=== PATIENT | female | born 2000 | race African-American/Black ===

== ENCOUNTER 2022-10-09 11:41 | Emergency (ER) | payer MEDICAID, OTHER ==
[~2022-10-09] VITALS: Ht 154.9 cm; Wt 76.5 kg
[2022-10-09 12:38] LABS: Urine Bacteria NONE SEEN /hpf (None Seen); Urine Blood Negative /uL (Negative); Urine Mucus FEW (None Seen); Urine Specific Gravity 1.031 (1.001-1.035); Urine WBC 9 /hpf (0 - 5)
[2022-10-09] MEDS ORDERED: CEPH-322 PO (13:45)
[2022-10-09 13:50] VITALS: BP 117/65
== END 2022-10-09 13:55 | disposition home or self-care (01) ==
LOC: ER 11:41
DX: N39.0 Urinary tract infection, site not specified (principal); Z32.02 Encounter for pregnancy test, result negative
CPT/HCPCS: 81001; 81025

== ENCOUNTER 2024-10-13 20:26 | Emergency (ER) | payer OTHER ==
[~2024-10-13] VITALS: Ht 152.4 cm; Wt 80.2 kg
[~2024-10-13 20:26] MED LIST: CEPH250C PO
--- NOTE | 2024-10-13 20:43 | ED.PDOC ---
History of Present Illness HPI Comments left eye swelling Comments 3 days of itch and swelling under left eye. pt denies using any new makeup, skin products, medications, having new pets. no other symptoms. no sob, no sore throat, no tongue swelling, no rash Time Seen by MD: 20:27 Primary Care Provider: unknown Allergies: Coded Allergies: NO KNOWN ALLERGIES (Unverified , 11/10/18) Home Meds Active Scripts Cephalexin (KEFLEX CAPSULE) 250 Mg Cp, 250 MG PO QID for 7 Days, #28 TAB Prov:CHARLOTTE BENAVIDES MD 10/09/22 Information Source: Patient Mode of Arrival: Ambulatory Timing: Days (3) Duration: Since onset Prehospital treatment: None Past Medical History PAST MEDICAL HISTORY: Denies Surgical History: Denies all surgeries DIE MAINTENANCE History: No Pertinent DIE MAINTENANCE History Family History Family History: Unknown Social History Smoker: Non-Smoker Alcohol: Denies ETOH Use Drugs: Denies Drug Use Lives In: Home Constitutional: denies: chills, diaphoresis, fatigue, fever, malaise, sweats, weakness, others EENTM: reports: others (swelling and itch under left eye); denies: blurred vision, double vision, ear bleeding, ear discharge, ear drainage, ear pain, ear ringing, eye pain, eye redness, hearing loss, mouth pain, mouth swelling, nasal discharge, nose bleeding, nose congestion, nose pain, photophobia, tearing, throat pain, throat swelling, voice changes Respiratory: denies: cough, hemoptysis, orthopnea, SOB at rest, shortness of breath, SOB with excertion, stridor, wheezing, others Cardiovascular: denies: chest pain, dizzy spells, diaphoresis, Dyspnea on exertion, edema, irregular heart beat, left arm pain, lightheadedness, palpitations, PND, syncope, others Gastrointestinal: denies: abdomen distended, abdominal pain, blood streaked bowels, constipated, diarrhea, dysphagia, difficulty swallowing, hematemesis, melena, nausea, poor appetite, poor fluid intake, rectal bleeding, rectal pain, vomiting, others Genitourinary: denies: abnormal vagina bleeding, burning, dyspareunia, dysuria, flank pain, frequency, hematuria, incontinence, pain, , vagina discharge, urgency, others Neurological: denies: dizziness, fainting, headache, left sided numbness, left sided weakness, numbness, paresthesia, pre-existing deficit, right sided numbness, right sided weakness, seizure, speech problems, tingling, tremors, weakness, others Musculoskeletal: denies: back pain, gout, joint pain, joint swelling, muscle pain, muscle stiffness, neck pain, others Integumetry: denies: bruises, change in color, change in hair/nails, dryness, laceration, lesions, lumps, rash, wounds, others Allergic/Immunocompromised: denies: Difficulty Healing, Frequent Infections, Hives, Itching, others Hematologic/Lymphatic: denies: anemia, blood clots, easy bleeding, easy bruising, swollen glands, others Endocrine: denies: excessive hunger, excessive sweating, excessive thirst, excessive urination, flushing, intolerance to cold, intolerance to heat, unexplained weight gain, unexplained weight loss, others Psychiatric: denies: anxiety, bipolar disorder, depression, hopeless, panic disorder, schizophrenia, sleepless, suicidal, others All Other Systems: Reviewed and Negative Physical Exam General Appearance: No Apparent Distress, Normal HEENT: Normal ENT Inspection, Pharynx Normal, TMs Normal, Other (edema under left eye. no conjunctival injection, no discharge, no proptosis. normal EOMs, no photophobia) Neck: Full Range of Motion, Non-Tender, Normal, Normal Inspection Respiratory: Chest Non-Tender, Lungs Clear, No Accessory Muscle Use, No Respiratory Distress, Normal Breath Sounds Cardiovascular: No Edema, No JVD, No Murmur, No Gallop, Normal Peripheral Pulses, Regular Rate/Rhythm Breast Exam: Deferred Gastrointestinal: No Organomegaly, Non Tender, No Pulsatile Mass, Normal Bowel Sounds, Soft Genitalia: Deferred Pelvic: Deferred Rectal: Deferred Extremities: No calf tenderness, Normal capillary refill, Normal inspection, Normal range of motion, Non-tender, No pedal edema Musculoskeletal : Apperance: Normal Neurologic: Alert, gravure press set up operator II-XII nml as Tested, No Motor Deficits, Normal Affect, Normal Mood, No Sensory Deficits Cerebellar Function: Normal Reflexes: Normal Skin: Dry, Normal Color, Warm Lymphatic: No Adenopathy Was a procedure done? Was a procedure done?: No Differential Dx Considerations may include: angioedema, urticaria, contact dermatitis, seasonal allergy, preorbital cellulitis X-Ray, Labs, Meds, VS Vital Signs Date Time Temp Pulse Resp B/P (MAP) Pulse Ox O2 Delivery O2 Flow Rate FiO2 10/13/24 22:07 97.9 74 18 140/88 (105) 98 97.9 10/13/24 22:07 Room Air* 0 21 10/13/24 20:36 97.9 99 18 133/87 (102) 97 97.9 Current Medications Medications (Trade) Dose Ordered Sig/Apolinar Route Start Time Stop Time Status Last Admin Dexamethasone Sodium Phosphate (Decadron Injection) 6 mg ONCE ONCE PO 10/13/24 20:45 10/13/24 21:19 DC 10/13/24 22:08 Time of 1ST Reevaluation: 20:43 Reevaluation 1ST: Unchanged Time of 2ND Reevaluation: 22:24 Reevaluation 2ND: Improved Patient Education/Counseling: Diagnosis, Treatment, Prognosis, Need For Follow Up Family Education/Counseling: No Family Present Departure 1 Departure Time of Disposition: 22:24 Impression: Primary Impression: Allergic reaction Qualified Codes: T78.40XA - Allergy, unspecified, initial encounter Disposition: 01 HOME / SELF CARE / HOMELESS Condition: Good e-Prescriptions Diphenhydramine Hcl (Benadryl Allergy) 25 Mg Cap 2 CAP PO Q6HP PRN, #60 CAP 2 Refills Prov: OSCAR RICE MD 10/13/24 Prednisone (Prednisone) 20 Mg Tab 20 MG PO DAILY for 5 Days, #5 TAB Prov: OSCAR RICE MD 10/13/24 Discharged With: Self Critical Care Note Critical Care Time?: No Stability Stability form required: No OSCAR RICE MD Oct 13, 2024 20:43
[2024-10-13 22:07] VITALS: BP 140/88; PULSE 74; RESP 18; TEMP 97.9; O2SAT 98
[2024-10-13] MEDS: DexAMETHasone SOD PHOS 10MG/1ML VIAL INJ PO ONE (22:08)
[2024-10-13] MEDS: diphenhdrAMINE HCL 25 MG CAP PO ONE (22:12)
[2024-10-13] MEDS ORDERED: DIPH25CA66 PO (22:25)
[2024-10-13] MEDS ORDERED: PRED20TA2 PO (22:25)
== END 2024-10-13 22:35 | disposition home or self-care (01) ==
LOC: ER 20:26
DX: T78.49XA Other allergy, initial encounter (principal); H57.89 Other specified disorders of eye and adnexa; H57.12 Ocular pain, left eye; X58.XXXA Exposure to other specified factors, initial encounter
CPT/HCPCS: 99283; J1100